=== PATIENT | female | born 1995 | race Hispanic/Latino ===

== ENCOUNTER 2020-06-21 07:36 | Emergency (ER) | payer BC ==
[2020-06-21] MEDS ORDERED: Morphine 4 MG/ML VIAL ONE ×2 (08:08→10:19)
[2020-06-21] MEDS ORDERED: Ondansetron PF 4 MG/2 ML Vial ONE ×2 (08:08→13:01)
[2020-06-21 08:19] LABS: BHCG - Serum Negative (NEGATIVE); Pregs Control Background? CLEAR/WHITE (CLR/WHITE); Pregs Control Bar Appear? YES (CONTROL BAR)
[2020-06-21 08:20] LABS: #Eosinphils 0.1 10x3/uL (0.0-0.5); #Monocytes 0.6 10x3/uL (0.0-1.1); #Neutrophils 12.7 10x3/uL (1.5-8.4); %Basophils 0.3 % (0.0-2.0); %Eosinophils 0.3 % (0.0-6.0); %Lymphocytes 11.2 % (18.0-47.0); %Monocytes 3.9 % (0.0-10.0); %Neutrophils 83.9 % (40.0-75.0); Hemoglobin 13.8 g/dL (12.0-15.5); Mean Corpuscular HGB CONC 33.1 g/dL (32.0-36.0); Mean Corpuscular Hemoglobin 29.2 pg (27.0-33.0); Mean Corpuscular Volume 88.2 fl (81.6-98.3); Mean Platelet Volume 9.6 fl (7.4-10.4); Platelet Count 323 10x3/uL (150-450); RBC Distribution Width 12.4 % (11.5-14.5); Red Blood Cell (RBC) Count 4.73 10x6/uL (3.90-5.03); White Blood Cell (WBC) Count 15.1 10x3/uL (3.5-10.5)
[2020-06-21 08:26] LABS: ALT (SGPT) 162 U/L (8-55); AST (SGOT) 60 U/L (5-34); Albumin 4.1 g/dL (3.5-5.0); Alkaline Phosphatase 67 U/L (40-110); Anion Gap 17 mmol/L (10-20); BUN (Urea Nitrogen) 15 mg/dL (7.0-18.7); Bilirubin, Total 0.6 mg/dL (0.2-1.2); Calc. Creatinine Clearance 0 mL/min (70-130); Calcium 9.2 mg/dL (7.8-10.44); Carbon Dioxide 19 mmol/L (22-29); Chloride 102 mmol/L (98-107); Globulin 4.2 g/dL (2.4-3.5); Glucose 164 mg/dL (70-105); Lipase 9 U/L (8-78); Potassium 4.2 mmol/L (3.5-5.1); Protein, Total 8.3 g/dL (6.0-8.3); Sodium 134 mmol/L (136-145)
[2020-06-21 08:49] LABS: Bilirubin Neg (Negative); Blood, Urine 250 (Negative); Clarity Clear (Clear); Glucose, Urine (Dipstick) Normal (Negative); Ketone, Urine Negative (Negative); Leukocyte Negative (Negative); Nitrite Negative (Negative); Protein, Urine (Dipstick) 15 mg/dl (Neg-Trace); Specific Gravity, Urine 1.015 (1.002-1.036); Urobilinogen Normal mg/dL (Less than 2)
[2020-06-21 09:07] LABS: Mucous/LPF 1+ LPF (<2+); Yeast-Budding Rare HPF (None Seen)
[2020-06-21 09:08] LABS: Bacteria/HPF 2+ HPF (None Seen)
[2020-06-21] MEDS ORDERED: Piperacillin/Tazobactam 3.375 GM VIAL ONE (10:19)
[2020-06-21] MEDS ORDERED: Bupivacaine 0.25% HCL 30 ML VIAL ONE (10:57)
[2020-06-21] MEDS ORDERED: EPINEPHrine 1 MG/ML AMP ONE (10:58)
[2020-06-21 11:08] LABS: SARS-CoV-2 NAA Rapid Test Not Detected (NotDetected)
[2020-06-21] MEDS ORDERED: PROPOFOL 20 ML ONE (11:55)
[2020-06-21] MEDS ORDERED: Fentanyl 100 MCG/2 ML VIAL ONE ×2 (11:55→12:59)
[2020-06-21] MEDS ORDERED: Rocuronium Bromide 10 MG/ML (10ML VIAL) ONE (11:56)
[2020-06-21] MEDS ORDERED: Lidocaine 1% PF 5 ML VIAL ONE (11:56)
[2020-06-21] MEDS ORDERED: SUGAMMADEX SODIUM 500 MG/5 ML VIAL ONE (12:10)
[2020-06-21] MEDS ORDERED: ceFOXitin 1 GM VIAL ONE (12:14)
[2020-06-21] MEDS ORDERED: Dexamethasone 4 mg/ml Vial ONE (13:01)
[2020-06-21] MEDS ORDERED: diphenhydrAMINE 50 MG/ML VIAL ONE (13:01)
== END 2020-06-21 11:48 | disposition admitted as inpatient to this hospital (09) ==
LOC: CSHERS 07:36
DX: K37 Unspecified appendicitis (principal); Z20.822 Contact with and (suspected) exposure to COVID-19
CPT/HCPCS: 74177; 80053; 81003; 81015; 83690; 84703; 85025; 88304; 96365; 96375; 96376; J0171; J0694; J1100; J1200; J2270; J2405; J2543; J2704; J3010; S0020; U0002

== ENCOUNTER 2022-03-11 10:26 | Day surgery (SDC) | payer BC ==
[2022-03-11 10:58] VITALS: BMI 58.9
[2022-03-11] MEDS ORDERED: Acetaminophen 325 MG TAB PO SCH (11:45)
[2022-03-11 12:01] LABS: Bilirubin Neg (Negative); Blood, Urine 150 (Negative); CAUTI Indications for Culture Pregnancy; Clarity Clear (Clear); Glucose, Urine (Dipstick) 50 mg/dL (Negative); Ketone, Urine Negative (Negative); Leukocyte Negative (Negative); Nitrite Negative (Negative); Protein, Urine (Dipstick) 30 mg/dl (Neg-Trace); Specific Gravity, Urine 1.015 (1.005-1.030); Urobilinogen Normal mg/dL (Less than 2); pH, Urine 6.5 (5.0-9.0)
[2022-03-11 12:23] LABS: Urine Culture Reflex Yes Yes
[2022-03-11 12:27] LABS: Bacteria/HPF 2+ HPF (None Seen); Transitional Epithelial 0-3 HPF (None Seen); WBC/HPF 0-3 HPF (0-3)
== END 2022-03-11 13:35 | disposition home or self-care (01) ==
LOC: CSHLD/OP 10:26
PROVIDERS: ATTEND Family Medicine
DX: O26.852 Spotting complicating pregnancy, second trimester (principal); O24.112 Pre-existing type 2 diabetes mellitus, in pregnancy, second trimester; E11.9 Type 2 diabetes mellitus without complications; Z79.4 Long term (current) use of insulin; Z3A.21 21 weeks gestation of pregnancy
CPT/HCPCS: 36416; 76815; 81001; 87086; 99282

== ENCOUNTER 2022-03-26 20:36 | Emergency (ER) | payer BC, OTHER, SELFPAY ==
[2022-03-26 21:01] LABS: Bilirubin Neg (Negative); Blood, Urine 150 (Negative); Clarity Clear (Clear); Glucose, Urine (Dipstick) >=1000 mg/dL (Negative); Ketone, Urine Negative (Negative); Leukocyte 500 (Negative); Nitrite Negative (Negative); Protein, Urine (Dipstick) 15 mg/dl (Neg-Trace); Specific Gravity, Urine 1.025 (1.005-1.030); Urobilinogen Normal mg/dL (Less than 2)
[2022-03-26 21:08] LABS: Bacteria/HPF 2+ HPF (None Seen)
[2022-03-26] MEDS ORDERED: Lidocaine 1% PF 5 ML VIAL ONE (22:14)
[2022-03-26] MEDS ORDERED: cefTRIAXone\\ROCEPHIN 1 GM VIAL ONE (22:15)
== END 2022-03-26 22:44 | disposition home or self-care (01) ==
LOC: CSHERS 20:36
DX: O23.12 Infections of bladder in pregnancy, second trimester (principal); N30.01 Acute cystitis with hematuria; O24.912 Unspecified diabetes mellitus in pregnancy, second trimester; Z3A.23 23 weeks gestation of pregnancy
CPT/HCPCS: 81003; 81015; 87086; 96372; 99283; J0696

== ENCOUNTER 2022-05-19 20:48 | Observation (INO) | payer BC, MEDICAID, OTHER ==
[2022-05-19] MEDS ORDERED: Labetalol HCl 100 MG/20 ML VIAL ONE (21:18)
[2022-05-19 21:23] LABS: #Eosinphils 0.1 10x3/uL (0.0-0.5); #Monocytes 0.3 10x3/uL (0.0-1.1); #Neutrophils 6.1 10x3/uL (1.5-8.4); %Basophils 0.2 % (0.0-2.0); %Eosinophils 0.6 % (0.0-6.0); %Lymphocytes 23.8 % (18.0-47.0); %Monocytes 3.8 % (0.0-10.0); Hemoglobin 12.1 g/dL (12.0-15.5); Mean Corpuscular HGB CONC 33.1 g/dL (32.0-36.0); Mean Corpuscular Hemoglobin 27.4 pg (27.0-33.0); Mean Platelet Volume 10.6 fl (7.4-10.4); Platelet Count 352 10x3/uL (150-450); RBC Distribution Width 13.4 % (11.5-14.5); Red Blood Cell (RBC) Count 4.41 10x6/uL (3.90-5.03); White Blood Cell (WBC) Count 8.6 10x3/uL (3.5-10.5)
[2022-05-19 21:37] LABS: ALT (SGPT) 20 U/L (8-55); AST (SGOT) 18 U/L (5-34); Albumin 3.2 g/dL (3.5-5.0); Alkaline Phosphatase 90 U/L (40-110); Anion Gap 14 mmol/L (10-20); BUN (Urea Nitrogen) 11 mg/dL (7.0-18.7); Bilirubin, Total 0.2 mg/dL (0.2-1.2); Calc. Creatinine Clearance 0 mL/min (70-130); Calcium 9.3 mg/dL (7.8-10.44); Carbon Dioxide 19 mmol/L (22-29); Chloride 104 mmol/L (98-107); Estimated GFR 106; Globulin 3.8 g/dL (2.4-3.5); Glucose 247 mg/dL (70-105); Sodium 133 mmol/L (136-145)
[2022-05-19 22:59] VITALS: BMI 60.2
[2022-05-19] MEDS ORDERED: HumaLOG 300 UNITS/3 ML VIAL SC PRN (23:32)
[2022-05-19] MEDS ORDERED: Dextrose 5% in Water 1,000 ML IV PRN (23:32)
[2022-05-19] MEDS ORDERED: Dextrose 50% Abboject 50 ML SYRINGE SLOW IVP PRN (23:32)
[2022-05-19] MEDS ORDERED: Acetaminophen 500 MG TAB PO PRN (23:35)
[2022-05-19] MEDS ORDERED: hydrALAZINE 20 MG/ML VIAL SLOW IVP PRN (23:35)
[2022-05-19] MEDS ORDERED: Ondansetron PF 4 MG/2 ML Vial IVP PRN (23:35)
[2022-05-19] MEDS ORDERED: Promethazine HCl 25 MG/ML VIAL IM PRN (23:35)
[2022-05-20 01:19] LABS: Creatinine, Urine 108.54 mg/dL (47-110)
[2022-05-20 01:40] LABS: SARS-CoV-2 NAA Rapid Test DETECTED (NotDetected)
[2022-05-20] MEDS: HumaLOG 300 UNITS/3 ML VIAL SC PRN ×2 (07:56→12:41)
[2022-05-20] MEDS: Labetalol HCl 100 MG TAB PO SCH ×2 (09:19→21:00)
[2022-05-20 12:35] LABS: Hemoglobin A1c 8.1 % (4.0-6.0)
[2022-05-21] MEDS: Labetalol HCl 100 MG TAB PO SCH ×2 (08:33→21:39)
[2022-05-21] MEDS ORDERED: Lantus 1000 UNITS/10 ML VIAL SC SCH (09:00)
[2022-05-21] MEDS: HumaLOG 300 UNITS/3 ML VIAL SC PRN (11:54)
[2022-05-22] MEDS: metFORMIN 500 MG TAB PO SCH ×2 (08:56→17:18)
[2022-05-22] MEDS ORDERED: Labetalol HCl 100 MG TAB PO SCH (09:00)
[2022-05-22] MEDS ORDERED: Lantus 1000 UNITS/10 ML VIAL SC SCH (09:00)
[2022-05-22 16:51] VITALS: BP 142/80; TEMP 98.8
== END 2022-05-22 17:25 | disposition home or self-care (01) ==
LOC: CSHERS 20:48 → CSHLD/OP 22:39 → CSHLD 23:35 → UNDOADMOB 05-20 00:05 → CSHLD 05-20 00:05 → CSHANTE 05-20 13:30
PROVIDERS: ADMIT Family Medicine; ATTEND Obstetrics & Gynecology
DX: O98.513 Other viral diseases complicating pregnancy, third trimester (principal); U07.1 COVID-19; O36.8130 Decreased fetal movements, third trimester, not applicable or unspecified; O24.113 Pre-existing type 2 diabetes mellitus, in pregnancy, third trimester; O09.33 Supervision of pregnancy with insufficient antenatal care, third trimester; O99.213 Obesity complicating pregnancy, third trimester; E66.9 Obesity, unspecified; O26.813 Pregnancy related exhaustion and fatigue, third trimester; O99.513 Diseases of the respiratory system complicating pregnancy, third trimester; J32.0 Chronic maxillary sinusitis; Z79.899 Other long term (current) drug therapy; Z3A.31 31 weeks gestation of pregnancy
CPT/HCPCS: 36416; 59025; 70450; 76815; 76819; 80053; 82570; 83036; 84156; 85025; 86850; 86900; 86901; 93005; 93010; 96374; G0378; J1815; U0002